=== PATIENT | female | born 1985 ===

== ENCOUNTER 2017-02-09 10:55 | Emergency (ER) | payer MEDICAID ==
[~2017-02-09 10:55] MED LIST: ALBUTEROL SULFAT3 M3 IH; AMBIEN 10MG10 MG; CELEXA 20MG20 MG/TAB; CLARITIN 1010 MG/TAB; DEPAKENE 250 MG/1 ML PO; IPRATROPIUM BROM3 M1 IH; MIRALAX PA17 GM/Dose; PULMICORT90 MCG/Act; SINGULAIR 110 MG/TAB; TEGRETOL 2200 MG/TA1; TRANXENE 3.753.75 MG; XANAX .25M0.25 MG/TA PO
[2017-02-09 10:56] VITALS: TEMP 99.8
[2017-02-09 11:28] LABS: BASO % 0.3 % (0.0-2.0); EOS # 0.1 (0.0-0.7); EOS % 1.4 % (0-4.0); GRAN # 6.5 (1.4-6.5); GRAN % 69.1 % (42.2-75.2); HEMATOCRIT 39.3 % (37.0-47.0); HEMOGLOBIN 12.6 g/dl (12.5-16.0); LYMPH # 1.9 (1.2-3.4); LYMPH % 20.7 % (20.0-51.0); MEAN CELL VOLUME 95 fl (80.0-100.0); MEAN CORPUSCULAR HEMOGLOBIN 30 pg (27.0-31.0); MEAN CORPUSCULAR HGB CONC 32 g/dl (33.0-37.0); MEAN PLATELET VOLUME 10.6 fl (7.4-10.4); MONO # 0.8 (0.1-0.6); MONO % 8.2 % (1.7-9.3); PLATELET COUNT 147 K/mm3 (130-400); RED BLOOD COUNT 4.16 M/mm3 (4.10-5.30); WHITE BLOOD COUNT 9.4 K/mm3 (4.8-10.8)
[2017-02-09 11:37] LABS: ADJUSTED CALCIUM 9.5 mg/dL (8.4-10.2); ALBUMIN 4.4 gm/dL (3.5-5.0); BILIRUBIN,TOTAL 0.4 mg/dL (0.0-1.0); CALCIUM 9.8 mg/dL (8.4-10.2); CREATININE, serum 0.53 mg/dL (0.52-1.25); POTASSIUM 4.2 mmol/L (3.4-5.0); TOTAL PROTEIN 7.6 gm/dL (6.4-8.2)
[2017-02-09 13:15] VITALS: BP 128/95; PULSE 80
== END 2017-02-09 13:15 | disposition home or self-care (01) ==
LOC: COL.ER 10:55
PROVIDERS: Nurse Practitioner
DX: R06.02 Shortness of breath (principal); Z86.69 Personal history of other diseases of the nervous system and sense organs
CPT/HCPCS: J7030